=== PATIENT | male | born 1985 | race Caucasian/White ===

== ENCOUNTER 2017-11-10 09:59 | Emergency (ER) | payer OTHER ==
[~2017-11-10] VITALS: Ht 180.3 cm; Wt 92.1 kg
[2017-11-10 10:12] VITALS: BP 133/83
[2017-11-10] MEDS: DEXAMETHASONE SOD PHOS 10 MG/ML VIAL IM ONE (10:41)
[2017-11-10] MEDS: KETOROLAC 60 MG/2 ML VIAL. IM ONE (10:41)
[2017-11-10] MEDS: ORPHENADRINE CITRATE 60 MG/2 ML VIAL. IM ONE (10:42)
--- NOTE | 2017-11-10 10:42 | ED.ADGEN ---
Past History Past Medical History: No Pertinent History Alcohol Use: None Drug Use: None Adult General HPI HPI 32-year-old male presents the emergency department with acute onset left low back pain that radiates into his left hip that started while doing lift. He states he was lifting 225 pounds and felt a sudden pain in his back. He admits to multiple previous episodes. He states that this happened just prior to arrival. He states that each time this happens his symptoms progress. Review of Systems Review of Systems All other systems were reviewed and found to be within normal limits, except as documented in this note. Family History Family History noncontributory Current Medications Current Medications Current Medications Medications (Trade) Dose Ordered Sig/Abigail Start Time Stop Time Status Last Admin Dose Admin Dexamethasone Sodium Phosphate (Decadron) 10 mg 1X ONCE 11/10/17 11:00 11/10/17 11:01 Ketorolac Tromethamine (Toradol Im) 60 mg 1X ONCE 11/10/17 11:00 11/10/17 11:01 Orphenadrine Citrate (Norflex) 60 mg 1X ONCE 11/10/17 11:00 11/10/17 11:01 Allergies Allergies Allergies Coded Allergies Type Severity Reaction Last Updated Verified No Known Drug Allergies 11/10/17 No Physical Exam Physical Exam GENERAL: Awake, alert, no acute distress HEAD/EYES: Normocephalic, EOMI ENT Airway patent, mucous membranes moist NECK: Supple, no meningismus, no swelling RESP: No respiratory distress, symmetrical expansion CV: Normal peripheral perfusion ABD/GI: Non distended SKIN: Warm, dry BACK: Left-sided paraspinal muscle tenderness and iliolumbar ligament tenderness NEURO: Normal motor strength, gait steady, no numbness, CN2-12 intact bilat PSYCH: Cooperative, appropriate affect Current Patient Data Vital Signs Vital Signs Date Time Temp Pulse Resp B/P (MAP) Pulse Ox O2 Delivery O2 Flow Rate FiO2 11/10/17 10:12 98.5 88 16 96 Room Air EKG EKG [] Radiology/Procedures Radiology/Procedures [] Course & Med Decision Making Course & Med Decision Making Pertinent Labs and Imaging studies reviewed. (See chart for details) [] Final Impression Final Impression Iliolumbar ligament sprain Dawna Disclaimer Dragon Disclaimer This electronic medical record was generated, in whole or in part, using a voice recognition dictation system. HOLLIS SHELTON DO Nov 10, 2017 10:42
[2017-11-10] MEDS ORDERED: NAPR-695 PO (10:46)
[2017-11-10] MEDS ORDERED: METH-37 PO (10:46)
[2017-11-10] MEDS ORDERED: PRED20TA PO (10:46)
== END 2017-11-10 11:00 | disposition home or self-care (01) ==
LOC: ER 09:59
DX: S33.5XXA Sprain of ligaments of lumbar spine, initial encounter (principal); X50.0XXA Overexertion from strenuous movement or load, initial encounter; Y93.89 Activity, other specified; Y92.89 Other specified places as the place of occurrence of the external cause; Y99.8 Other external cause status
CPT/HCPCS: 96372; 99284; J1100; J1885; J2360